=== PATIENT | female | born 1985 | race Caucasian/White ===

== ENCOUNTER → 2017-11-28 14:13 | Outpatient (CLI) | payer BC, SELFPAY ==
[2017-12-01 08:49] LABS: HPV APTIMA, High Risk Negative (Negative)
== END ==
PROVIDERS: Visit Provider Nurse Practitioner Women's Health
DX: Z12.4 Encounter for screening for malignant neoplasm of cervix (principal); N89.8 Other specified noninflammatory disorders of vagina
CPT/HCPCS: 87070; 87205; 88175; G0145

== ENCOUNTER 2018-09-04 20:44 | Emergency (ER) | payer BC, SELFPAY ==
[2018-08-21 11:23] VITALS: BMI 26.2
[2018-09-04 20:46] VITALS: BP 134/83; PULSE 72; RESP 18; TEMP 36.7; O2SAT 97; BMI 28.9
--- NOTE | 2018-09-04 20:55 | RAD_ITS ---
STUDY: X-RAY - LEFT ANKLE REASON FOR EXAM: Female, 32 years old. Pain after a fall TECHNIQUE: 3 view(s) of the ankle. COMPARISON: None. FINDINGS: Normal visualized distal tibia and fibula. Normal medial and lateral malleoli. Normal tibiotalar articulation and ankle mortise. Normal visualized talus and calcaneus. The visualized subtalar, talonavicular, calcaneocuboid and tarsal articulations are normal. Nonspecific lateral soft tissue swelling RAD/Ankle min 3 Views IMPRESSION: No demonstrated fracture or ankle mortise abnormality. Lateral soft tissue swelling Electronically Signed: Sandor Monroy MD at 21:08 EST , Service support ,
--- NOTE | 2018-09-04 21:41 | ED.DCSUM_ITS ---
- ER Visit Summary Date of Service: 09/04/18 Chief Complaint: [Injury left ankle] History of Present Illness: The patient is a 32 F [presents to the emergency department with a left ankle injury that occurred approximately 7:30 PM. Patient states that she stepped off a step and missed the step causing her to fall and twisting her left ankle. She denies any other injuries. She did not attempt to ambulate due to the pain and swelling. She denies striking her head. No loss of consciousness. She denies any neck pain.] Physical Examination: [HEENT-PERRLA, EOMI. Cranial nerves II through XII grossly intact. TMs clear. Mucous membranes moist. No adenopathy. Cardiovascular-regular rate and rhythm without murmur or ectopy Lungs-clear to auscultation, chest wall stable without crepitus or subcu emphysema Abdomen-normoactive bowel sounds, soft, nontender, no rebound or rigidity, no peritoneal signs. Extremities-intact ?4, normal range of motion, normal pulses. Left ankle- patient has soft tissue swelling over the lateral malleolus. Patient has tenderness palpation over lateral malleolus. No pain at the proximal fibular head. No pain at the base of the fifth metatarsal. She is nervously intact distally.] Test Results: [X-rays of left ankle obtained showed no fractures] Emergency Department Course and Treatment: [Patient was given air splint and crutches.] Treatment Plan: [Patient will be given a prescription for Naprosyn and [place].] Disposition: [Discharged home in stable condition. Patient advised to follow-up with primary care physician in 7-10 days.] Impression: [Left ankle sprain] This note was generated with [employer] dictation software. It may contain incorrect words, spelling, and punctuation that were not noted in review of the chart prior to signing ED Disposition - Plan for ED Patient: Referrals: Geremias Domínguez MD [Primary Care Provider] -
--- NOTE | 2018-09-04 21:41 | ED.DEP ---
ED Disposition - Plan for ED Patient: Instructions: ED Sprain Ankle W X Ray Prescriptions: Hydrocodone Bitart/Apap 5-325 [[place] 5MG-325MG] 1 tab PO Q4H PRN PRN 2 Days #10 tab PRN Reason: Pain Naproxen [Naprosyn] 500 mg PO BID PRN #20 tab Referrals: Geremias Domínguez MD [Primary Care Provider] - 5-7 Days
[2018-09-04] MEDS: HYDROcodone Bitartrate/Apap 5/325 Tablet PO (22:10)
== END 2018-09-04 22:12 | disposition home or self-care (01) ==
PROVIDERS: Emergency Provider Emergency Medicine
DX: S93.402A Sprain of unspecified ligament of left ankle, initial encounter (principal); W10.9XXA Fall (on) (from) unspecified stairs and steps, initial encounter; Y93.9 Activity, unspecified; Y92.9 Unspecified place or not applicable; Y99.9 Unspecified external cause status
CPT/HCPCS: 73610; 99284

== ENCOUNTER 2018-10-21 17:38 | Emergency (ER) | payer BC, SELFPAY ==
[2018-10-21 17:40] VITALS: BP 137/73; PULSE 92; RESP 16; TEMP 36.7; O2SAT 95; BMI 26.6
--- NOTE | 2018-10-21 17:47 | RAD_ITS ---
STUDY: X-RAY - LEFT ANKLE REASON FOR EXAM: Female, 33 years old. Pain and swelling TECHNIQUE: 3 view(s) of the ankle. COMPARISON: 09/04/2018 FINDINGS: There is a fracture of the medial malleolus with overlying soft tissue swelling. The remainder of the visualized osseous structures are intact. There are no radiodense foreign bodies. RAD/Ankle min 3 Views IMPRESSION: Fracture of the medial malleolus with overlying soft tissue swelling. Electronically Signed: Seth Irwin, at 18:06 EDT Tel , Service support ,
--- NOTE | 2018-10-21 18:30 | ED.VISSUMM ---
- ER Visit Summary Date of Service: 10/21/18 Chief Complaint: Left ankle injury History of Present Illness: The patient is a 33 F presenting with left ankle injury. Patient states was trying to hang a canopy. She was on a step stool 3 steps up. She lost her balance and fell landing directly on her left ankle. She did not hit her head or lose consciousness. Denies other complaints. Physical Examination: Vitals are stable. Patient is afebrile. Alert no acute distress. HEENT exam is unremarkable. Neck is nontender Lungs are clear and equal bilaterally. Heart is regular rate and rhythm. Extremities diffuse left ankle swelling and tenderness. No proximal fibula tenderness. No fifth metatarsal tenderness. Skin is warm and dry. No focal neurologic deficit. Remainder of exam is unremarkable. Emergency Department Course and Treatment: X-ray left ankle shows fracture of the medial malleolus with overlying soft tissue swelling. Xray left foot shows Acute fracture of the medial malleolus Hallux valgus. Patient was given morphine, Zofran IM. Ortho-Glass splint was applied. She is advised nonweightbearing. She has crutches. She is given [place] for home. She is advised to follow-up with Dr. Larsen who she has seen in the past. Advised return to ED if worsening complaints. Disposition: Discharge home Impression: Left medial malleolus fracture This note was generated with [employer] dictation software. It may contain incorrect words, spelling, and punctuation that were not noted in review of the chart prior to signing ED Disposition - Plan for ED Patient: Referrals: Geremias Domínguez MD [Primary Care Provider] -
[2018-10-21] MEDS: morphine 8 MG/ML Syringe IM (18:34)
[2018-10-21] MEDS: Ondansetron 4 MG/2 ML Vial IM (18:34)
--- NOTE | 2018-10-21 18:52 | RAD_ITS ---
STUDY: X-RAY - LEFT FOOT CLINICAL: Female, 33 years old. Left-sided foot pain and swelling. TECHNIQUE: 3 view(s) of the foot. COMPARISON: Radiographs of the left ankle dated October 21, 2018. FINDINGS: There is an acute displaced fracture of the medial malleolus. Normal talus, calcaneus, and tarsal bones. Metatarsal articulations are within normal limits. Normal metatarsi. There is degenerative arthrosis of the metatarsophalangeal joint of the hallux with a hallux valgus deformity. There is a bipartite tibial sesamoid. Normal interphalangeal joint of the great toe. Normal phalanges of the great toe. Normal second through fifth metatarsophalangeal joints. Normal interphalangeal joints and phalanges of the lesser toes. The soft tissue structures are unremarkable. RAD/Foot min 3 Views IMPRESSION: 1. Acute fracture of the medial malleolus. 2. Hallux valgus. Electronically Signed: Alla Reilly MD at 19:22 EDT , Service support ,
--- NOTE | 2018-10-21 19:50 | ED.DEP ---
ED Disposition - Plan for ED Patient: Instructions: ED Fx Ankle General Prescriptions: Hydrocodone Bitart/Apap 5-325 [[place] 5MG-325MG] 1 tablet PO Q6H PRN PRN 3 Days #10 tablet PRN Reason: Pain Referrals: Geremias Domínguez MD [Primary Care Provider] - Contreras Larsen DO [STAFF PHYSICIAN] -
[2018-10-21 19:51] VITALS: BP 136/78; PULSE 86; RESP 15; O2SAT 99
[2018-10-21] MEDS: HYDROcodone Bitartrate/Apap 5/325 Tablet PO (19:56)
== END 2018-10-21 19:57 | disposition home or self-care (01) ==
PROVIDERS: Emergency Provider Emergency Medicine
DX: S82.52XA Displaced fracture of medial malleolus of left tibia, initial encounter for closed fracture (principal); W17.89XA Other fall from one level to another, initial encounter; Y93.89 Activity, other specified; Y92.9 Unspecified place or not applicable; Y99.9 Unspecified external cause status; M20.12 Hallux valgus (acquired), left foot
CPT/HCPCS: 29515; 73610; 73630; 96372; 99282; J2405

== ENCOUNTER → 2018-10-23 11:09 | Outpatient (CLI) | payer BC, SELFPAY ==
[2018-10-21 17:40] VITALS: BMI 26.6
--- NOTE | 2018-10-23 11:57 | CT_ITS ---
STUDY: CT OF THE LEFT LOWER EXTREMITY/ANKLE WITHOUT CONTRAST REASON FOR EXAM: Female, 33 years old. Left ankle fracture after fall October 21, 2018. Further evaluation. RADIATION DOSAGE (If Supplied By Facility): CTDIvol = ( 15.35 ) mGy, DLP = ( 518.79 ) mGycm. Individualized dose optimization techniques were used for this CT.? TECHNIQUE: Contiguous axial images of the left lower extremity/ankle were obtained without contrast. Coronal, sagittal and bone and soft tissue algorithm images were provided for interpretation. COMPARISON: Foot and ankle images dated October 21, 2018. FINDINGS: There is a minimally displaced vertical fracture of the medial malleolus extending from the anterior aspect of the tibiotalar joint posteriorly and proximally approximately 3.6 cm above the tibiotalar joint (axial series 3 images 50-65). The fracture does communicate with the tibiotalar articulation medially. There is a mildly impacted fracture of the tibial plafond and centrally with approximately 3 mm of displacement with compression of trabecular bone at this site. There is a vertical minimally displaced fracture of the medial and posterior talus (coronal series 602 images 42-51). CT/Extremity Lower without Contra IMPRESSION: Fractures of the medial malleolus and medial and posterior aspect of the talus as described above. Electronically Signed: Asim Odom MD at 12:21 EDT , Service support ,
== END ==
PROVIDERS: Referring Provider Physician Assistant; Visit Provider Physician Assistant
DX: S82.52XA Displaced fracture of medial malleolus of left tibia, initial encounter for closed fracture (principal); X58.XXXA Exposure to other specified factors, initial encounter; Y93.9 Activity, unspecified; Y92.9 Unspecified place or not applicable; Y99.9 Unspecified external cause status
CPT/HCPCS: 73700

== ENCOUNTER → 2019-08-12 09:56 | Outpatient (CLI) | payer BC, SELFPAY ==
[2019-01-08 10:12] VITALS: BMI 26.6
[2019-08-12 12:11] LABS: hCG Titer Quant., Serum 19543 mIU/mL (1-3)
== END ==
PROVIDERS: Referring Provider Obstetrics & Gynecology; Visit Provider Obstetrics & Gynecology
DX: N92.6 Irregular menstruation, unspecified (principal)
CPT/HCPCS: 36415; 84702

== ENCOUNTER → 2019-08-19 08:58 | Outpatient (CLI) | payer BC, SELFPAY ==
[2019-01-08 10:12] VITALS: BMI 26.6
--- NOTE | 2019-08-19 08:58 | US_ITS ---
STUDY: FIRST TRIMESTER OBSTETRICAL ULTRASOUND REASON FOR EXAM: Female, 33 years old DATING EARLY LMP: July 17, 2019 TECHNIQUE: Transabdominal TECHNICAL QUALITY: Adequate. PRIOR ULTRASOUND: None. FINDINGS: There is visualization of a single gestational sac in a normal intrauterine position. The mean sac diameter (MSD) measures 2.11 cm, indicating an estimated gestational age (EGA) of 7 weeks, 0 days. The gestational sac shape is within normal limits. There is a visualized yolk sac. The yolk sac measures 4.3 mm. The placenta is non-visualized. There is visualization of a live embryo. The crown-rump length (CRL) measures 1.07 cm, indicating an estimated gestational age (EGA) of 7 weeks, 1 days. There is demonstrated cardiac activity with a heart rate of 150 bpm. The estimated gestation age (EGA) by LMP is 6 weeks, 5 days. The estimated date of delivery (GAB) by LMP is April 08, 2020. The estimated gestation age (EGA) by US is 7 weeks, 0 days. The estimated date of delivery (GAB) by US is April 06, 2020. The uterus measures 10.3 cm x 6.3 cm x 5.5 cm. There is no demonstrated uterine fibroid. The cervix is closed. The right ovary is not visualized. The left ovary measures 3.7 cm x 2.8 sided by 2.6 cm. There is no left ovarian cyst. There is no visualized left adnexal mass or complex lesion. There is no fluid in the cul de sac. US/Init OB < 14Wks US IMPRESSION: Single live intrauterine gestation with a mean gestational age of 7 weeks. Electronically Signed: Mike Molina, at 12:39 EST , Service support ,
== END ==
LOC: OPUS 08:58
PROVIDERS: Referring Provider Nurse Practitioner Women's Health; Visit Provider Nurse Practitioner Women's Health
DX: N91.2 Amenorrhea, unspecified (principal)
CPT/HCPCS: 76801

== ENCOUNTER → 2019-08-21 12:50 | Outpatient (CLI) | payer BC, SELFPAY ==
[2019-08-21 09:19] VITALS: BMI 26.6
[2019-08-21 14:55] LABS: Chlamydia Trachomatis by PCR Negative (Negative); Neisserai gonorrhoeae by PCR Negative (Negative); Probe Check PASS; Sample Adequacy Control PASS; Specimen Processing Control PASS
== END ==
PROVIDERS: Referring Provider Obstetrics & Gynecology; Visit Provider Obstetrics & Gynecology
DX: Z34.90 Encounter for supervision of normal pregnancy, unspecified, unspecified trimester (principal)
CPT/HCPCS: 87086; 87088; 87491; 87591

== ENCOUNTER → 2019-09-18 10:14 | Outpatient (CLI) | payer MEDICAID, SELFPAY ==
[2019-09-18 09:48] VITALS: BMI 28.7
[2019-09-18 10:54] LABS: Absolute Lymphocyte Count 1.38 X10^3/uL (0.83-4.51); Absolute Neutrophil Count 6.2 X10^3/uL (2.0-7.7); Basophil# 0.03 X10^3/uL; Basophil% 0.4 % (0-1); Eosinophils% 1.2 % (0-5); Hematocrit 39.8 % (37-47); Hemoglobin 13.3 g/dL (12.0-15.0); Lymphocyte # 1.38 X10^3/ul (4.0); Lymphocyte % 16.4 % (19-41); Mean Corp Hgb Conc 33.4 g/dL (32-36); Mean Corpuscular Hgb 31.3 pg (27.0-32.0); Mean Corpuscular Volume 93.6 fL (81-99); Mean Platelet Vol. 9.9 fl (6.2-12.0); Monocyte# 0.68 X10^3/uL; Monocyte% 8.1 % (0-10); NRBC Flagged by Analyzer 0 % (0-5); Neutrophil % 73.4 % (47-70); Platelet Count 274 K/mm3 (150-450); RBC Distribution Width CV 12.4 % (11.6-14.6); Red Blood Count 4.25 M/mm3 (4.2-5.4); White Blood Count 8.4 K/mm3 (4.4-11.0)
[2019-09-18 11:21] LABS: NATERA MAILED SPECIMEN
[2019-09-18 12:47] LABS: HIV - WCH Non-Reactive (Nonreactive); Hepatitis B Surface Antigen Non-Reactive (Nonreactive); Hepatitis C Antibody Non-Reactive (Nonreactive); Rubella IgG 315.4 IU/mL
[2019-09-18 17:48] LABS: Amphetamine Urine VISTA NEGATIVE (<1000 ng/mL); Barbiturate Urine VISTA NEGATIVE (< 200 ng/mL); Benzodiazepine Urine VISTA NEGATIVE (< 200 ng/mL); Cocaine Urine VISTA NEGATIVE (< 300 ng/mL); Ecstacy Urine VISTA NEGATIVE (< 500 ng/mL); Methadone Urine VISTA NEGATIVE (< 300 ng/mL); PCP Urine VISTA NEGATIVE (< 25 ng/mL); THC Urine VISTA NEGATIVE (< 50 ng/mL); Vista UDS pH Range 7
[2019-09-19 00:26] LABS: Rapid Plasmin Reagin (RPR) NONREACTIVE (NONREACTIVE)
== END ==
PROVIDERS: Obstetrics & Gynecology; Referring Provider Nurse Practitioner Women's Health; Visit Provider Nurse Practitioner Women's Health
DX: Z34.81 Encounter for supervision of other normal pregnancy, first trimester (principal)
CPT/HCPCS: 36415; 80307; 85025; 86592; 86703; 86762; 86803; 86850; 86900; 86901; 87340

== ENCOUNTER → 2019-11-19 08:18 | Outpatient (CLI) | payer MEDICAID, SELFPAY ==
[2019-10-18 13:21] VITALS: BMI 28.7
--- NOTE | 2019-11-19 10:05 | US_ITS ---
STUDY: SECOND AND THIRD TRIMESTER OBSTETRICAL ULTRASOUND REASON FOR EXAM: Female, 34 years old ANATOMY -- HIGH RISK DUE TO ADVANCED MATERNAL AGE LMP: July 02, 2019. TECHNIQUE: Transabdominal TECHNICAL QUALITY: Adequate. PRIOR ULTRASOUND: Comparison is made with prior study dated August 19, 2019. FINDINGS: There is a single intrauterine fetus. The fetus is in a breech presentation. There is demonstrated cardiac activity with a heart rate of 153 bpm. There is a normal amniotic fluid volume. The largest amniotic fluid pocket measures 3.6 cm x 3.5 cm. The amniotic fluid index (YONAS) is 10.79 cm. The placenta is posterior in location and is not low lying. There are Grade 1 placental changes. The cervix measures 5.4 cm in length. The adnexal regions are not visualized. BIOMETRY: BPD: 4.44 cm: 19 weeks, 3 days HC: 17.61 cm: 20 weeks, 0 days AC: 15.44 cm: 20 weeks, 4 days FL: 3.34 cm: 20 weeks, 3 days CI: 73.4% FL/BPD: 75.2% FL/HC: FL/AC: 21.7% HC/AC: 1.14 age by current US: 20 weeks, 1 days. GAB by current US: April 06, 2020. Estimated weight: 356 grams, +/- 53 grams, 78 %. age by prior US: 20 weeks, 1 days. GAB by prior US: April 06, 2020. Age by LMP: 19 weeks, 6 days. GAB by LMP: April 08, 2020. ANATOMY: Gender: Male Cranium: Normal lateral ventricles. Normal choroid plexus. Normal cerebellum. Normal cisterna magna. Normal face, nose and lips. Chest: Normal 4-chamber heart. Abdomen/Pelvis: Normal diaphragm. Normal stomach. Normal abdominal wall. Normal cord insertion. Normal 3 vessel cord. Normal kidneys. Normal bladder. Spine: Normal cervical spine. Normal thoracic spine. Normal lumbar spine. Normal sacrum. Extremities: Normal bilateral upper extremities. Normal bilateral lower extremities. US/OB Anatomy Scan IMPRESSION: Single live uterine gestation with a mean gestational age of 20 weeks and 1 day. There has been good interval growth. Electronically Signed: Mike Molina, at 12:35 EDT , Service support ,
== END ==
PROVIDERS: Referring Provider Obstetrics & Gynecology; Visit Provider Obstetrics & Gynecology
DX: O09.512 Supervision of elderly primigravida, second trimester (principal); O32.1XX0 Maternal care for breech presentation, not applicable or unspecified; Z3A.20 20 weeks gestation of pregnancy
CPT/HCPCS: 76805

== ENCOUNTER → 2019-12-12 10:26 | Outpatient (CLI) | payer MEDICAID, SELFPAY ==
[2019-12-12 09:38] VITALS: BMI 28.4
== END ==
PROVIDERS: Referring Provider Obstetrics & Gynecology; Visit Provider Obstetrics & Gynecology
DX: Z12.4 Encounter for screening for malignant neoplasm of cervix (principal)
CPT/HCPCS: 36415; 82105

== ENCOUNTER → 2020-01-10 10:48 | Outpatient (CLI) | payer MEDICAID, SELFPAY ==
[2019-12-12 09:38] VITALS: BMI 28.4
[2020-01-10 11:14] LABS: Glucose Challenge Gest 1H 50g 141 mg/dL (70-140)
[2020-01-10 11:24] LABS: Absolute Lymphocyte Count 0.96 X10^3/uL (0.83-4.51); Absolute Neutrophil Count 5.8 X10^3/uL (2.0-7.7); Basophil# 0.03 X10^3/uL; Basophil% 0.4 % (0-1); Eosinophil# 0.07 X10^3/uL; Eosinophils% 0.9 % (0-5); Hematocrit 36.4 % (37-47); Hemoglobin 11.7 g/dL (12.0-15.0); Lymphocyte # 0.96 X10^3/ul (4.0); Lymphocyte % 12.9 % (19-41); Mean Corp Hgb Conc 32.1 g/dL (32-36); Mean Corpuscular Hgb 31.6 pg (27.0-32.0); Mean Corpuscular Volume 98.4 fL (81-99); Mean Platelet Vol. 10.2 fl (6.2-12.0); Monocyte# 0.54 X10^3/uL; Monocyte% 7.3 % (0-10); NRBC Flagged by Analyzer 0 % (0-5); Neutrophil # 5.78 X10^3/uL (2.7-7.7); Neutrophil % 77.7 % (47-70); Platelet Count 185 K/mm3 (150-450); RBC Distribution Width CV 13.3 % (11.6-14.6); RBC Distribution Width SD 48.2 fl (35.1-43.9); White Blood Count 7.4 K/mm3 (4.4-11.0)
== END ==
PROVIDERS: Referring Provider Obstetrics & Gynecology; Visit Provider Obstetrics & Gynecology
DX: Z34.92 Encounter for supervision of normal pregnancy, unspecified, second trimester (principal); I10 Essential (primary) hypertension; Z3A.27 27 weeks gestation of pregnancy
CPT/HCPCS: 36415; 82950; 85025

== ENCOUNTER → 2020-01-13 09:44 | Outpatient (CLI) | payer MEDICAID, SELFPAY ==
[2020-01-10 11:13] VITALS: BMI 28.4
[2020-01-13 10:52] LABS: Glucose GTT-Gestation. Fasting 83 mg/dL (<105)
[2020-01-13 11:39] LABS: Glucose GTT-Gestational 1 Hr 160 mg/dL (<190)
[2020-01-13 13:27] LABS: Glucose GTT-Gestational 2 Hr 159 mg/dL (<165)
[2020-01-13 13:30] LABS: Glucose GTT-Gestational 3 Hr 127 L (<145)
== END ==
PROVIDERS: Referring Provider Obstetrics & Gynecology; Visit Provider Obstetrics & Gynecology
DX: O99.810 Abnormal glucose complicating pregnancy (principal); Z3A.00 Weeks of gestation of pregnancy not specified
CPT/HCPCS: 36415; 82951; 82952

== ENCOUNTER → 2020-03-12 08:55 | Outpatient (CLI) | payer MEDICAID, SELFPAY ==
[2020-02-27 11:00] VITALS: BMI 28.4
--- NOTE | 2020-03-12 08:56 | US_ITS ---
STUDY: SECOND AND THIRD TRIMESTER OBSTETRICAL ULTRASOUND REASON FOR EXAM: Female, 34 years old growth-AMA LMP: 07/01/2019. TECHNIQUE: Transabdominal TECHNICAL QUALITY: Adequate. PRIOR ULTRASOUND: Comparison is made with prior study dated 11/19/2019. FINDINGS: There is a single intrauterine fetus. The fetus is in a cephalic presentation. There is demonstrated cardiac activity with a heart rate of 147 bpm. There is a normal amniotic fluid volume. The largest amniotic fluid pocket measures 5.7 cm. The amniotic fluid index (YONAS) is 12.0 cm. The placenta is posterior in location and is not low lying. There are Grade 2 placental changes. The cervix measures 3.2 cm in length. The adnexal regions are not visualized. BIOMETRY: BPD: 9.2 cm: 37 weeks, 3 days HC: 33 cm: 37 weeks, 3 days AC: 32.3 cm: 36 weeks, 1 days FL: 7.2 cm: 36 weeks, 5 days CI: 83% FL/BPD: 78% FL/HC: FL/AC: 22% HC/AC: 1.02 age by current US: 36 weeks, 6 days. GAB by current US: 04/03/2020. Estimated weight: 3004 grams, +/- 445 grams, 60 %. age by prior US: 36 weeks, 3 days. GAB by prior US: 04/06/2020. Age by LMP: 36 weeks, 3 days. GAB by LMP: 04/06/2020. US/OB Limited With Biometrics IMPRESSION: Single live intrauterine gestation with a mean gestational age of 36 weeks and 3 days. The measurements obtained today fall within the normal expected range. Electronically Signed: Mike Molina, at 14:32 EDT , Service support ,
== END ==
PROVIDERS: Referring Provider Obstetrics & Gynecology; Visit Provider Obstetrics & Gynecology
DX: O09.90 Supervision of high risk pregnancy, unspecified, unspecified trimester (principal); Z3A.00 Weeks of gestation of pregnancy not specified
CPT/HCPCS: 76816; 87081

== ENCOUNTER → 2020-03-24 09:25 | Outpatient (CLI) | payer MEDICAID, SELFPAY ==
[2020-03-18 10:38] VITALS: BMI 28.4
== END ==
PROVIDERS: Referring Provider Obstetrics & Gynecology; Visit Provider Obstetrics & Gynecology
DX: Z11.59 Encounter for screening for other viral diseases (principal)
CPT/HCPCS: 87635; C9803; U0003

== ENCOUNTER 2020-03-27 02:31 | Inpatient (IN) | payer MEDICAID, SELFPAY ==
[2020-03-18 10:38] VITALS: BMI 28.4
[2020-03-27] VITALS (44 sets, daily range): BP systolic 90–191; BP diastolic 40–100; PULSE 67–98; RESP 16–18; TEMP 36.1–37.1; O2SAT 89–100; BMI 29.3
[2020-03-27] MEDS: Lactated Ringers 500 ML 999 ML IV (03:00)
[2020-03-27 03:18] LABS: Absolute Lymphocyte Count 3.12 X10^3/uL (0.83-4.51); Absolute Neutrophil Count 6.4 X10^3/uL (2.0-7.7); Basophil# 0.05 X10^3/uL; Basophil% 0.5 % (0-1); Eosinophil# 0.13 X10^3/uL; Eosinophils% 1.2 % (0-5); Hematocrit 37.5 % (37-47); Hemoglobin 12.4 g/dL (12.0-15.0); Lymphocyte # 3.12 X10^3/ul (4.0); Lymphocyte % 29.2 % (19-41); Mean Corp Hgb Conc 33.1 g/dL (32-36); Mean Corpuscular Hgb 31.6 pg (27.0-32.0); Mean Corpuscular Volume 95.7 fL (81-99); Mean Platelet Vol. 10.9 fl (6.2-12.0); Monocyte# 0.91 X10^3/uL; Monocyte% 8.5 % (0-10); NRBC Flagged by Analyzer 0 % (0-5); Neutrophil # 6.42 X10^3/uL (2.7-7.7); Neutrophil % 60.1 % (47-70); Platelet Count 219 K/mm3 (150-450); RBC Distribution Width CV 12.9 % (11.6-14.6); RBC Distribution Width SD 44.7 fl (35.1-43.9); Red Blood Count 3.92 M/mm3 (4.2-5.4); White Blood Count 10.7 K/mm3 (4.4-11.0)
[2020-03-27 03:23] LABS: ROM Internal Control Test YES-OK TO RESULT pt. (Internal QC); ROM Patient Test POSITIVE (Negative)
[2020-03-27] MEDS: Lactated Ringers 1,000 ML 50 ML IV (03:35)
--- NOTE | 2020-03-27 03:40 | HP.PCM_ITS ---
- Problem List (1) Active labor at term Status: Acute (2) Sterilization Status: Acute Comment: title 19 signed 01/29/20 plan PPTL if able. (3) Abnormal glucose affecting Status: Acute Comment: 1 elevated value- recommend healthy diet (4) Advanced maternal age (AMA) in Status: Acute Comment: genetic counseling provided and low risk NIPT, plan growth US 36 weeks- Growth US normal on 03/12 (5) Status: Acute Qualifiers: Comment: carrier negative in past, NIPT low risk. neg ntd screening. Anatomy US normal. Received flu shot (6) Supervision of high risk , antepartum Status: Acute Comment: PRR GAB 04/08/20 boy Caden SueDeirdre howell Rory (Ariel) History Date of Admission: 03/27/20 Final GAB: 04/08/20 Final GAB Source: US >20 weeks Gestational age: 38 Weeks and 2 Days History of this : This is a 34 year-old, G 4, P2, at 38 weeks gestational age. Presented with ROM at 0100 and found to be 4cm on presentation. Admitted in active labor. Surgical History: Surgical History (Last Reviewed 03/18/20 @ 10:28 by Micaela Son) History of ankle surgery Z98.890 left Allergies No Known Allergies Allergy (Verified 03/27/20 03:06) Home Medications: Home Medications vitamin#30 30 mg iron-10 mg iron-folic acid 1 mg-omg3 capsule 1 cap PO DAILY 08/21/19 Smoking Status: Never smoker Alcohol: None Number of Fetus(es): 1 NST - FHR Rate Baby A Baseline: 130 Variability:: Moderate Accelerations:: 15 x 15 Decelerations:: None NST Reactive:: Yes FHR Category:: Category I Uterine Activity:: q2-3min History Past Pregnancies: Pregancy History 4 Elective abortions Hx Para 2 Spontaneous abortions Hx # Term Pregnancies Ectopic pregnancies Hx # Pregnancies Multiple births # of living children Past Pregnancies Del. Date Name GA/Weeks Outcome Route Bth Weight Gen Labor Lgth Anesthesia Del Locatn Provider FOB Unknown 2009 Deirdre live - full term 6 lb 9 ounce s Female Unknown 2015 kAbar 37 live - full term 6 lbs 4 F emale Labs: Mom's Labs & Results 03/27/20 03/27/20 03/27/20 02:50 03:05 03:05 WBC 10.7 RBC 3.92 L Hgb 12.4 Hct 37.5 MCV 95.7 MCH 31.6 MCHC 33.1 RDW Std Deviation 44.7 H RDW Coeff of Dandy 12.9 Plt Count 219 MPV 10.9 Immature Gran % (Auto) 0.500 Neut % (Auto) 60.1 Lymph % (Auto) 29.2 [place] % (Auto) 8.5 Eos % (Auto) 1.2 Baso % (Auto) 0.5 Absolute Neuts (auto) 6.4 Absolute Lymphs (auto) 3.12 Nucleated RBC % 0 Vag Amniotic Fld Detect POSITIVE H Blood Type Pending Antibody Screen Pending Course Did the patient receive Yes care? Labs Blood Type: A RH: POSITIVE RPR/VDRL/Syphilis Nonreactive Rubella status Immune HbSAg Negative Date Done: 09/18/19 Chlamydia Negative Gonorrhea Negative HIV/AIDS Non-Reactive Group B Strep: Negative Other Lab Procedures/Results/ covid negative Comments: Current Obstetrical History Gestational Diabetes No Incompetent Cervix No Infertility No IUGR No Macrosomia No Hypertension/Pre-eclampsia No Placenta Previa/Abruption No PTL/PROM No Uterine anomaly No Oligohydramnios No Polyhydramnios No Multiple gestation No Past Medical History Asthma No Diabetes No Hypertension No Heart disease No Mitral valve prolapse No Neurologic/Seizure disorder/ No Migraines Kidney disease No Liver disease No Varicosities No Clotting disorders/Hx of DVT No Thyroid Dysfunction No Other medical diseases No Psychiatric disorders No Major trauma No Abnormal PAP smear No Sleep apnea No Mammogram in the last 2 years No Social History Alleged father Rory Enciso Hx Smoking No Smoking Status Never smoker Expected Infant Delivery Method: Spontaneous Vaginal Describe any other labor & delivery plans:: GAB Calculator. Estimated Delivery DateMethodCurrent WG. Current Svgxexme35/23/20LMP (Certain)37w 0d. Expected Delivery Route/Plan. . Labor Preferences-. labor support person: rory. pain management options preferred: epidural. cut cord/dad catch: yes. : yes. PP control planned: ppbtl. discussed possible routes of delivery and associated risks: []. special requests: denies. Specific Issue/Plans. flu vaccine: given. tdap vaccine: given. rhogam: na. LARC form signed: declined. movement and labor precautions reviewed. Problem list reviewed and updated with the most current plan of care details and appropriate orders placed. Relevant counseling for the gestational age provided. Continue routine care and follow up unless otherwise noted in visit notes/problem list details Review of Systems Constitutional: Denies: Chills, Fever HEENT: Denies: Head Aches Cardiovascular: Denies: Chest Pain, Palpitations Respiratory: Denies: Cough Gastrointestinal: Reports: Abdominal Pain. Denies: Nausea, Vomiting Genitourinary: Denies: Dysuria Gynecological: Reports: Vaginal discharge - amniotic fluid. Denies: Vaginal bleeding, Vaginal itching Neurological: Denies: Numbness, Tingling Psychiatric: Denies: Anxiety, Depression Physical Exam Vitals: Vital Signs Pulse BP Pulse Ox 91 141/79 H 100 03/27/20 03:36 03/27/20 03:36 03/27/20 03:35 General: Alert, Oriented x3, Cooperative, No apparent distress HEENT: Atraumatic, PERRLA, EOMI, Normocephalic Cardiovascular: Regular rate Lungs: Normal air movement Abdomen: Soft, Non Tender, Non-Distended, Gravid, Appropriate for Gestational Age Neurological: Cranial nerves II-XII grossly intact, Deep Tendon Reflexes 2+/4 and Symmetrical, Neuro grossly intact FISCAL SERVICES DIRECTOR: Normal external genitalia Estimated gestational size: Appropriate for gestational size Presentation: Cephalic Cervix Dilation (cm): 7 Station: -2 Effacement (%): 90 Assessment/Plan All Active Problems (Last Reviewed 03/18/20 @ 10:28 by Micaela Son) Active labor at term (Acute) Sterilization (Acute) Abnormal glucose affecting (Acute) Advanced maternal age (AMA) in (Acute) (Acute) Supervision of high risk , antepartum (Acute) This is a 34 year-old, G2, P1, at 38 weeks gestational age. Patient presents IAL, plan expectant management for , pitocin/AROM PRN if needed. Pain management: Plans epidural. GBS negative Management of any complications: None Desires PPBTL I have reviewed the [facility] and made any clinically relevant updates.
[2020-03-27] MEDS: fentaNYL-bupivacaine (epidural) 100 ML BAG EPIDURAL (03:45)
[2020-03-27] MEDS: Ondansetron 4 MG/2 ML Vial IV (04:09)
[2020-03-27] MEDS: Oxytocin 30 units/NS 500 ml 30 UNITS/500 ML IV.SOLN 334 UNITS IV (04:45)
--- NOTE | 2020-03-27 04:56 | OP.PCM_ITS ---
Problem List (1) Active labor at term Status: Acute (2) Sterilization Status: Acute Comment: title 19 signed 01/29/20 plan PPTL if able. (3) Abnormal glucose affecting Status: Acute Comment: 1 elevated value- recommend healthy diet (4) Advanced maternal age (AMA) in Status: Acute Comment: genetic counseling provided and low risk NIPT, plan growth US 36 weeks- Growth US normal on 03/12 (5) Status: Acute Qualifiers: Comment: carrier negative in past, NIPT low risk. neg ntd screening. Anatomy US normal. Received flu shot (6) Supervision of high risk , antepartum Status: Acute Comment: PRR GAB 04/08/20 boy Deirdre Anderson Blayne (Ariel) Vaginal Delivery Patient is a 34-year-old G4, P2 at 38 weeks gestation who was admitted out of triage in active labor. She received an epidural in the made rapid cervical change to complete dilation. Amniotic Membrane Rupture Type: Spontaneous at home Rupture of Membrane time: 0100 Amniotic Fluid Description: Clear Final GAB: 04/08/20 Gestational age: 38 Weeks and 2 Days Date of Procedure: 03/27/20 Pre-Operative Diagnosis: Active labor Post-Operative Diagnosis: Live male infant in HAN position Surgery/ Procedure Performed: Spontaneous Vaginal Delivery Type of Anesthesia: Epidural Description of Procedure: Patient began pushing and delivered the head in the HAN presentation. The head was delivered atraumatically and a loose nuchal cord ?1 was identified and easily reduced over the infant's head. The anterior and posterior shoulders delivered without complication followed by the rest of the infant and the was placed on the maternal abdomen. Delayed cord clamping was employed for approximately 60 seconds. Cord was clamped and cut and gentle traction was applied to the cord and the placenta delivered spontaneously immediately following it was noted to be intact with three-vessel cord. The perineum and vagina were inspected and noted to have no laceration. EBL was 100 cc. Patient and infant tolerated delivery well. Presentation: Vertex, HAN Placental Delivery Description: Spontaneous Placenta Disposition: [facility] Cord Vessel Description: 3 Vessels Nuchal Cord Compression: Without compression Cord Entanglement: Around neck x 1, loose Estimated Blood Loss: 100 A gender: Male Episiotomy Description: None Laceration: None Medications given after delivery: IV Pitocin Complications: None Multi Select Codes - Urinary/Genital Urinary/Genital CPT Codes: 61124 Vaginal Delivery [facility]
--- NOTE | 2020-03-27 04:59 | DCINST_ITS ---
Discharge Diet: No Restrictions Discharge Activity: Return to Normal Activity, May not drive while taking narcotic pain medications., May Shower May resume sexual activity in: 4-6 weeks Additional Activity Instructions:: Nothing in the vagina for 4-6 weeks. You may return to work/school in 6 weeks. Call your doctor if your incision/area has: Continuous Slow Oozing, Sudden Increased Bleeding, Increased Pain/ Swelling, Increased Redness, Foul Smelling Discharge Additional Instructions: If you experience any of the following, contact your healthcare provider. * Bleeding that soaks a pad every hour for 2 hours * Fever 100.4 or higher * Unrelieved incision or abdominal pain * Swelling, redness, discharge or bleeding from your incision or episiotomy site * Your incision begins to separate * Problems urinating (including inability to urinate or burning while urinating). * Visual changes * Severe headache * Flu-like symptoms * Pain or redness in one of both of your breasts * Pain, warmth, tenderness or swelling in your legs, especially the calf area * Frequent nausea and vomiting * Symptoms of depression or anxiety If you experience any of the following, call 911 or go to the nearest Emergency Room. * Chest pain * Problems breathing * Seizure activity * Partial or complete paralysis of a body part, slurred speech, weakness or drooping of the face, or a sudden inability to walk or hold your balance Allergies/Adverse Reactions: Allergies No Known Allergies Allergy (Verified 03/27/20 03:06) Medications to take at Discharge vitamin#30 30 mg iron-10 mg iron-folic acid 1 mg-omg3 capsule 1 cap PO DAILY 08/21/19 When: Call to make an appointment with your doctor in 6 weeks. If you had elevated Blood Pressure or 4th degree laceration you will need to be seen in 2 weeks. Primary Care Physician: Geremias Domínguez MD [Primary Care Provider] - Test Results: Test results from this visit will be discussed in further detail at your follow- up appointment, if applicable.
[2020-03-27] MEDS: Naproxen 250 MG Tablet 500 MG PO ×2 (06:50→19:02)
[2020-03-27] MEDS: Acetaminophen 500 MG Tablet 1000 MG PO ×2 (12:17→19:02)
[2020-03-27] MEDS: Lactated Ringers 1,000 ML 100 ML IV (15:05)
[2020-03-27] MEDS: Bupivacaine 0.25% 30 ML Vial (17:00)
--- NOTE | 2020-03-27 18:31 | PCM.OPRPT ---
Problem List (1) Active labor at term Status: Acute (2) Sterilization Status: Acute Comment: title 19 signed 01/29/20 plan PPTL if able. (3) Abnormal glucose affecting Status: Acute Comment: 1 elevated value- recommend healthy diet (4) Advanced maternal age (AMA) in Status: Acute Comment: genetic counseling provided and low risk NIPT, plan growth US 36 weeks- Growth US normal on 03/12 (5) Status: Acute Qualifiers: Comment: carrier negative in past, NIPT low risk. neg ntd screening. Anatomy US normal. Received flu shot (6) Supervision of high risk , antepartum Status: Acute Comment: PRR GAB 04/08/20 boy Caden MAXIMILIANO Deirdre Webber Blayne (Ariel) Report of Operation Date of Procedure: 03/27/20 Pre-Operative Diagnosis: Multiparity, Desire for permanent sterilization Post-Operative Diagnosis: same Surgery/Procedure Performed:: bilateral tubal ligation with filshie clips Description of Surgical Findings:: Normal-appearing uterus. Normal-appearing fallopian tubes bilaterally. Type of Anesthesia:: Spinal Special Medications: none Specimen's removed: none Estimated Blood Loss (mL): 2cc Description of Procedure: The patient was taken to the operating room where spinal anesthesia was obtained without difficulty. She was prepped and draped in the dorsal supine position. Cc of 1% lidocaine were injected directly inferior to the umbilicus. A 4 uterine incision was made just below the umbilicus. The incision was carried down to the level of the fascia with the Bovie. The fascia was grasped with Allis clamps and the fascia was incised using Bettencourt scissors. The fascial was carried laterally using Bettencourt scissors. The peritoneum was then entered sharply using Bettencourt scissors. The needle incision was then carried laterally. The bowel was packed out of the operative field and the left fallopian tube was identified and elevated. A Filshie clip was placed completely occluding the left fallopian tube. This was repeated in a similar fashion on the right side. Both tubes were noted to be in place adequately. The fascial incision was then closed in a running fashion using 0 Vicryl suture. The skin was closed in a running subcuticular fashion using 4-0 Monocryl suture. The procedure was deemed complete. Grafts/Implants Used: filshie clips - Complications none - Admit VTE Documentation VTE Present on Admission: No Multi Select Codes - Urinary/Genital Urinary/Genital CPT Codes: 64561 PPTL
[2020-03-27] MEDS: oxyCODONE 5 MG Tablet PO (23:58)
[2020-03-28 04:39] VITALS: BP 90/55; PULSE 68; RESP 16; TEMP 36.2
[2020-03-28] MEDS: Acetaminophen 500 MG Tablet 1000 MG PO (04:42)
[2020-03-28] MEDS: Naproxen 250 MG Tablet 500 MG PO (04:42)
--- NOTE | 2020-03-28 07:30 | PCM.PN.OB ---
Patient Problems: Active and Suspected Problems (Last Reviewed 03/18/20 @ 10:28 by Micaela Son) Active labor at term (Acute) Subjective: Patient doing well without complaints. Tolerating PO. Ambulating and voiding without difficulty. breast feeding well. Denies chest pain, shortness of breath, calf pain/swelling, fevers, chills, lightheadedness. - Physical Exam Vitals/I&O's: Vital Signs Temp Pulse Resp BP Pulse Ox 97.1 F L 68 16 90/55 L 96 03/28/20 04:39 03/28/20 04:39 03/28/20 04:39 03/28/20 04:39 03/27/20 17:39 Oxygen Delivery Method Room Air Weight: 181 lb 14.102 oz Body Mass Index (BMI) 29.3 Intake and Output for Last 24 Hours 03/26/20 03/27/20 03/28/20 23:59 23:59 23:59 Intake Total 1350.1 / 1350.1 Output Total 1999 400 / 400 Balance -649.9 / -649.9 -400 / -400 General: Alert, Oriented x3 Current Medications Acetaminophen (Tylenol) 1,000 mg PO Q8H PRN PRN PRN Reason: Pain Score 1-3/10 Last Admin: 03/28/20 04:42 Dose: 1,000 mg Documented by: Bisacodyl (Dulcolax) 10 mg RECTAL UD PRN PRN Reason: If no BM Dibucaine (Dibucaine) 1 applic TOPICAL TID PRN PRN; Protocol PRN Reason: Discomfort Hydrocortisone (Hytone) 1 applic TOPICAL TID PRN PRN; Protocol PRN Reason: Discomfort Methylergonovine Maleate (Methergine) 0.2 mg IM X1 PRN PRN Reason: Excess bleeding/uterine atony Naproxen (Naprosyn) 500 mg PO Q8H PRN PRN PRN Reason: Pain Score 1-3/10 Last Admin: 03/28/20 04:42 Dose: 500 mg Documented by: Ondansetron HCl (Zofran) 4 mg IV Q4H PRN PRN PRN Reason: Nausea Oxycodone HCl (Oxyir) 5 - 10 mg PO Q4H PRN PRN PRN Reason: Pain Score 4-10/10 Last Admin: 03/27/20 23:58 Dose: 10 mg Documented by: Senna/Docusate Sodium (Senokot-S, Amber-Colace) 1 - 2 tablet PO DAILY PRN PRN PRN Reason: Constipation Simethicone (Mylicon) 80 mg PO PCHS PRN PRN Reason: Indigestion/Stomach pain Sodium Chloride () 5 - 15 ml IV UD PRN PRN Reason: SALINE FLUSH Medical Necessity - Tobacco Use Smoking Status: Never smoker Assessment/Plan All Active Problems (Last Reviewed 03/18/20 @ 10:28 by Micaela Son) Active labor at term (Acute) Sterilization (Acute) Abnormal glucose affecting (Acute) Advanced maternal age (AMA) in (Acute) (Acute) Supervision of high risk , antepartum (Acute) s/p PPD # 1 1. routine post delivery care 2. breast feeding- support given 3. rh positive 4. rubella immune
[2020-03-28 08:45] VITALS: BP 99/61; PULSE 72; RESP 16; TEMP 36.9
[2020-03-28] MEDS: oxyCODONE 5 MG Tablet PO (09:04)
== END 2020-03-28 13:10 | disposition home or self-care (01) | DRG 541 ==
LOC: WPOUT 02:38 → WP 02:39 → WPOUT 02:52 → WP 02:52
PROVIDERS: Admitting Provider Obstetrics & Gynecology; Visit Provider Obstetrics & Gynecology
PROC: 0UL70ZZ Occlusion of Bilateral Fallopian Tubes, Open Approach (ICD-10-PCS; principal; 2020-03-27 15:45)
DX: O69.81X0 Labor and delivery complicated by cord around neck, without compression, not applicable or unspecified (principal); Z30.2 Encounter for sterilization; Z11.59 Encounter for screening for other viral diseases; Z3A.38 38 weeks gestation of pregnancy; Z37.0 Single live birth
CPT/HCPCS: 59025; 59050; 84112; 85025; 86850; 86900; 86901; 87635; 99218; C9803; J7120; A4216; G0378; J2405; U0003

== ENCOUNTER → 2023-03-09 | Outpatient (CLI) | payer MEDICAID, SELFPAY ==
[2023-03-13 19:07] LABS: HPV APTIMA, High Risk Negative (Negative)
== END | disposition home or self-care (01) ==
LOC: LABSPEC 12:17
PROVIDERS: Referring Provider Nurse Practitioner Women's Health; Visit Provider Nurse Practitioner Women's Health
DX: Z12.4 Encounter for screening for malignant neoplasm of cervix (principal)
CPT/HCPCS: 87624; 88175; G0145

== ENCOUNTER → 2024-12-30 | Outpatient (CLI) | payer MEDICAID, SELFPAY ==
--- NOTE | 2024-12-30 13:00 | BI_ITS ---
EXAM: SCRN MAMM (CAD)W/RCISTÓBAL BILAT DATE: 12/30/2024 CLINICAL HISTORY: F, Age 39 y/o , SCREEN FOR BREAST CANCER Grandmother with breast cancer. BREAST CANCER RISK ASSESSMENT: Not assessed. TECHNIQUE: Bilateral screening digital breast tomosynthesis with 2D and 3D images. Computer aided detection. COMPARISON: Baseline examination. FINDINGS: TISSUE DENSITY: The breast tissue is extremely dense which lowers the sensitivity of mammography. Bilateral Breast Mammographic Findings: No significant masses, calcifications or other abnormalities are identified. No suspicious masses, areas of developing architectural distortion, or suspicious calcifications. BI/SCRN MAMM (CAD)W/CRISTÓBAL BILAT IMPRESSION: No significant abnormality is seen. OVERALL FINAL ASSESSMENT BI-RADS 1: NEGATIVE. RECOMMEND ANNUAL MAMMOGRAPHIC SCREENING. RECOMMENDATION: Routine annual follow-up in 1 Year A letter with findings and recommendations will be mailed to the patient. Reading Location: [place] [id number]
== END | disposition home or self-care (01) ==
LOC: OPBI 12:48
PROVIDERS: Referring Provider Nurse Practitioner Women's Health; Visit Provider Nurse Practitioner Women's Health
DX: Z12.31 Encounter for screening mammogram for malignant neoplasm of breast (principal)
CPT/HCPCS: 77063; 77067

== ENCOUNTER → 2025-01-21 | Outpatient (CLI) | payer MEDICAID, SELFPAY | END | disposition home or self-care (01) | PROVIDERS: Referring Provider Nurse Practitioner Women's Health; Visit Provider Nurse Practitioner Women's Health | DX: Z13.29 Encounter for screening for other suspected endocrine disorder (principal); N93.9 Abnormal uterine and vaginal bleeding, unspecified | CPT/HCPCS: 36415; 84439; 84443; 86376 ==

== ENCOUNTER → 2025-01-27 | Outpatient (CLI) | payer MEDICAID, SELFPAY ==
--- NOTE | 2025-01-27 | US_ITS ---
PROCEDURE: THYROID 01/27/2025 REASON FOR EXAM: ENLARGED THYROID TECHNIQUE: THYROID COMPARISON: None. FINDINGS: Right thyroid lobe size: 5.3 x 1.7 x 1.0 cm -interpolar, 6 x 6 x 4 mm, mixed cystic and solid with a smooth margin. TR 3. -interpolar, 6 x 4 x 3 mm, mixed cystic and solid with a smooth margin. TR 3. The remaining nodules in the right thyroid lobe are either less than 5 mm in greatest dimension or are completely cystic (TR 1). Left thyroid lobe size: 5.1 x 1.7 x 1.0 cm -lower pole, 5 x 4 x 3 mm, solid, heterogeneous, with a smooth margin. TR 3 The remaining nodules in the left thyroid lobe are either less than 5 mm in greatest dimension or are completely cystic (TR 1). Isthmus: 2 mm Background parenchymal echotexture is homogeneous TI-RADS: <2 = TR 1 * 2 = TR 2 * 3 = TR 3 * 4-6 = TR 4 * >6 = TR 5 US/Thyroid IMPRESSION: Follow up thyroid ultrasound in 1 year. RECOMMENDATION: Based on most suspicious nodule. Nodule size = largest diameter Only evaluate nodule if =>5 mm. Growth > 20% in 2 dimensions = worsening. Follow up to 4 nodules. Recommend biopsy for no more than 2 nodules. Reading Location: [place] [id number]
--- NOTE | 2025-01-27 12:51 | US_ITS ---
PROCEDURE: PELVIC W/ TRANSVAGINAL REASON FOR EXAM: AUB TECHNIQUE: PELVIC W/ TRANSVAGINAL COMPARISON: None FINDINGS: LMP: January 17, 2025. Measurements: Uterus: 10.2 cm x 5.9 cm x 4.9 cm with a volume of 154.37 mL Endometrial Thickness: 8.5 mm. It is hyperechoic. Nabothian cyst is seen. Right Ovary: 2.3 cm x 2.3 cm x 1.7 cm with a volume of 4.54 mL. Left Ovary: Not visualized TRANSABDOMINAL: Uterus: Normal size, myometrial echotexture, and contour. Endometrium: Unremarkable. Right ovary: 1.4 cm x 1.9 cm 1.3 cm follicle with low-level echoes within it most likely representing a regressing follicle. Left ovary: Not visualized. Other: No large pelvic mass identified. Transvaginal sonography was performed to better visualize the endometrium. TRANSVAGINAL: Uterus: Anteverted. Endometrium: Normal echotexture. Right ovary: 1.4 cm x 1.9 cm 1.3 cm follicle with low-level echoes within it suggestive of regressing follicle. Left ovary: Not visualized. Other adnexal findings: None. Cul-de-sac: No free intraperitoneal fluid identified. Tenderness: No tenderness US/Pelvic w/ Transvaginal IMPRESSION: Right ovarian follicle. Reading Location: [place] [id number]
== END | disposition home or self-care (01) ==
LOC: US 12:50
PROVIDERS: Referring Provider Nurse Practitioner Women's Health; Visit Provider Nurse Practitioner Women's Health
DX: N93.9 Abnormal uterine and vaginal bleeding, unspecified (principal); E04.9 Nontoxic goiter, unspecified
CPT/HCPCS: 76536; 76830; 76856